=== PATIENT | female | born 1950 | race Caucasian/White ===

== ENCOUNTER → 2020-06-27 | Outpatient (CLI) | payer MEDICARE, OTHER | LOC: CT 08:45 | DX: C51.9 Malignant neoplasm of vulva, unspecified (principal); R97.8 Other abnormal tumor markers; R91.8 Other nonspecific abnormal finding of lung field; R93.5 Abnormal findings on diagnostic imaging of other abdominal regions, including retroperitoneum; Z90.710 Acquired absence of both cervix and uterus | CPT/HCPCS: 36415; 71260; 82565; Q9967 ==